=== PATIENT | female | born 1960 | race African-American/Black ===

== ENCOUNTER 2017-11-07 20:34 | Inpatient (IN) | payer BC ==
[~2017-11-07] VITALS: Ht 165.1 cm; Wt 97.2 kg
--- NOTE | ~2017-11-07 | 2DMMODE ---
[facility] [address] [place] [address] 2 D/M-MODE ECHOCARDIOGRAM Name: DEION BOO Room #: 215-P ADM IN .R.#: [id number] Admission: 11/07/17 Attend Phys: Rosy Condon Discharge: Date of : 60 Date of Service: 11/08/17 1332 Report #: [id number] THIS REPORT FOR: //name// APPROVED REPORT Study performed: 11/08/2017 10:07:03 EXAM: Comprehensive 2D, Doppler, and color-flow Echocardiogram Patient Location: In-Patient Room #: 215 Status: routine BSA: 1.92 HR: 62 bpm BP: 97/62 mmHg Other Information Study Quality: Good Risk Factors: Cardiac Risk Factors: SOB Indications Chest Pain 2D Dimensions LVEF(%): 66.60 (>50%) IVSd: 8.88 (7-11mm) LVOT Diam: 21.29 (18-24mm) LVDd: 46.04 mm PWd: 7.60 (7-11mm) Ascending Ao: 25.57 (22-36mm) LVDs: 29.13 (25-40mm) Left Atrium: 29.36 (27-40mm) Aortic Root: 29.04 mm Liriano's LVEF: 66.60 % Volumes Left Atrial Volume (Systole) Single Plane 4CH: 31.29 mL Single Plane 2CH: 38.50 mL Aortic Valve AoV Peak Mauricio.: 1.50 m/s AO Peak Gr.: 9.03 mmHg LVOT Max P.10 mmHg AO Mean Gr.: 5.17 mmHg LVOT Mean P.99 mmHg AO V2 Mean: 1.08 m/s LVOT Max V: 1.13 m/s AO V2 VTI: 32.42 cm LVOT Mean V: 0.82 m/s MARIO (VTI): 2.40 cm2 LVOT V1 VTI: 21.91 cm [facility] [place] [address] 2 D/M-MODE ECHOCARDIOGRAM Name: DEION BOO Room #: 215-P [facility] IN .R.#: [id number] Admission: 11/07/17 Attend Phys: Rosy Condon Discharge: Date of : 60 Date of Service: 11/08/17 1332 Report #: [id number] [id number] Vmax: 2.67 cm2 SV (LVOT): 77.93 mL Mitral Valve E/A Ratio: 1.8 MV Decel. Time: 226.98 ms MV E Max Mauricio.: 0.93 m/s MV A Mauricio.: 0.53 m/s MV PHT: 65.82 ms Pulmonary Valve PV Peak Mauricio.: 0.98 m/s PV Peak Gr.: 3.86 mmHg Pulmonary Vein P Vein S: 0.57 m/s P Vein A: 0.36 m/s P Vein D: 0.39 m/s P Vein A Dur.: 120.0 msec P Vein S/D Ratio: 1.46 Tricuspid Valve TR Peak Mauricio.: 2.51 m/s RAP Estimate: 5.00 mmHg TR Peak Gr.: 25.23 mmHg PA Pressure: 30.00 mmHg Left Ventricle The left ventricle is normal size. There is normal left ventricular wall thickness. The left ventricular systolic function is normal. The left ventricular ejection fraction is within the normal range. LVEF is 55-60%. The left ventricular diastolic function is normal. Right Ventricle The right ventricle is normal size. The right ventricular systolic function is normal. Atria The left atrium size is normal. The right atrium size is normal. Aortic Valve Aortic valve is mildly calcified. No aortic regurgitation is present. There is no aortic valvular stenosis. Mitral Valve Mild mitral regurgitation. No evidence of mitral valve stenosis. There is mild mitral valve prolapse. Tricuspid Valve [facility] [address] [place] [address] 2 D/M-MODE ECHOCARDIOGRAM Name: DEION BOO Room #: 215-P [facility] IN M.R.#: [id number] Admission: 11/07/17 Attend Phys: Rosy Condon Discharge: Date of : 60 Date of Service: 11/08/17 1332 Report #: [id number] The tricuspid valve is normal in structure. There is trace tricuspid regurgitation. The right atrial pressure is estimated at 30 mmHg. There is mild pulmonary hypertension. Pulmonic Valve The pulmonary valve is normal in structure. There is no pulmonic valvular regurgitation. Great Vessels The aortic root is normal in size. IVC is normal in size and collapses >50% with inspiration. Pericardium There is no pericardial effusion. <Conclusion> The left ventricle is normal size. There is normal left ventricular wall thickness. The left ventricular systolic function is normal. The right ventricle is normal size. The left atrium size is normal. Aortic valve is mildly calcified. There is no aortic valvular stenosis. There is mild mitral valve prolapse. Mild mitral regurgitation. <ELECTRONICALLY SIGNED> By: Chico Medina MD 11/08/171331 31 31 Chico Medina MD /INF
--- NOTE | ~2017-11-07 | HC ---
[facility] [place] [address] CONSULTATION Name: DEION BOO Room #: 215-P [facility] IN M.R.#: [id number] Admission: 11/07/17 Attend Phys: Rosy Barillas Discharge: 11/08/17 Date of : 60 Report #: [id number] THIS REPORT FOR: //name// CC: Arnie Fletchercusricardo Barillas DATE OF SERVICE: 11/08/2017 INDICATION: Chest pain. HISTORY OF PRESENT ILLNESS: This is a pleasant 57-year-old female presenting with chest discomfort. She describes 2 problems. The first is a mild chest discomfort in the substernal area, radiating to the back. It has been present for the past week or so. It seems to be exacerbated in certain positions, reproducible with palpation over the area. She denies any associated lightheadedness or diaphoresis. Occasionally, she has noted some shortness of air. The second problem is a discomfort that starts in the right neck and shoulder area, radiating down to her right fingers. This is most likely related to a neurologic problem. There is no history of fever, chills, nausea or diarrhea. PAST MEDICAL HISTORY: Positive for fibromyalgia and scleroderma. Denies any history of diabetes mellitus or hypertension. ALLERGIES: TETRACYCLINE. MEDICATIONS: Please see the MAR for full listing. SOCIAL HISTORY: Negative tobacco use. FAMILY HISTORY: Positive for premature coronary artery disease. REVIEW OF SYSTEMS: A full 10-point review of systems performed. Only the pertinent positives and negatives are described in the HPI. PHYSICAL EXAMINATION: VITAL SIGNS: Blood pressure is 120/70, heart rate is 80 beats per minute. GENERAL APPEARANCE: A well-developed, well-nourished female in no acute respiratory distress. HEAD AND EYES: Normocephalic. Sclerae are anicteric. ENT: Oral mucosa moist. NECK: Supple. LUNGS: Clear to auscultation. CARDIAC: Regular rate and rhythm, S1, S2 positive. ABDOMEN: Soft. [facility] [address] [place] [address] CONSULTATION Name: DEION BOO Room #: 215-[facility] IN M.R.#: [id number] Admission: 11/07/17 Attend Phys: Rosy Barillas Discharge: 11/08/17 Date of : 60 Report #: [id number] EXTREMITIES: No cyanosis, no edema. ECG reveals sinus rhythm, otherwise normal. LABORATORY VALUES: Troponin is negative x 3. ASSESSMENT AND PLAN: 1. Chest pain/atypical, it is reproducible with palpation over the area, more likely related to musculoskeletal etiology. Recommend aspirin and nonsteroidal anti-inflammatory drugs. 2. Neuropathy, she has a discomfort in the right shoulder area radiating to her right hand. 3. Dyspnea on exertion, will need an echocardiogram to assess the left ventricular systolic function. If the left ventricular function is normal and she remains clinically stable, consider discharge for an outpatient evaluation. She will ultimately need a stress test. 4. Sjogren syndrome, continue medications. <ELECTRONICALLY SIGNED> By: Chico Medina MD 11/09/17 0800 1110 1514 Chico Medina MD /nt
--- NOTE | ~2017-11-07 | EKG ---
[address] [address] ELECTROCARDIOGRAM REPORT Name: DEION BOO Room #: 215-P ADM IN M.R.#: [id number] Admission: 11/07/17 Attend Phys: Rosy Barillas Discharge: Date of : 60 Report #: [id number] THIS REPORT FOR: //name// [facility] ED Test Date: 2017-11-07 Test Time: 20:45:45 Pat Name: DEION BOO Department: Room: [facility] Gender: F [employer] Rout[employer]: [id number] : 1960 Requested By: Vincent Garcia Order Number: [id number] MD: Chico Medina Measurements Intervals [place] Rate: 78 P: 62 OH: 143 QRS: 34 QRSD: 78 T: 32 QT: 365 QTc: 416 Interpretive Statements Sinus rhythm No previous ECG available for comparison Electronically Signed On 11-08-2017 12:27:42 KILN FIRER by Chico Medina [email or web address] <ELECTRONICALLY SIGNED> By: Chico Medina MD 11/08/17 1227 2045 2045 Chico Medina MD /EPI
[2017-11-07 20:35] VITALS: BP 139/85
[2017-11-07 21:26] LABS: ANION GAP 11 mmol/L (7-16); BUN 17 mg/dL (7-18); CALCIUM 9.3 mg/dL (8.5-10.1); CHLORIDE 105 mmol/L (98-107); CO2 23 mmol/L (21-32); CREATININE 1.1 mg/dL (0.6-1.0); GLUCOSE 98 mg/dL (74-106); POTASSIUM 4.6 mmol/L (3.5-5.1); SODIUM 139 mmol/L (136-145)
[2017-11-07 21:34] LABS: HEMOGLOBIN 12.8 gm/dL (12.0-15.0); MCH 29.2 pg (26.0-34.0); MCHC 32.8 g/dL (28.0-37.0); MCV 88.9 fL (80.0-100.0); RBC 4.39 mil/uL (4.20-5.00); RDW 13.1 % (10.5-14.5); WBC 8.1 thou/uL (4.0-11.0)
[2017-11-07 21:35] LABS: TROPONIN-I < 0.04 ng/mL (<0.06)
[2017-11-07 21:43] LABS: MANUAL DIFF YES
[2017-11-07 22:33] LABS: ABSOLUTE NEUTROPHILS 4.8 thou/uL (1.4-8.2); ANISOCYTOSIS SLIGHT; ATYPICAL LYMPHS 2 %; LARGE PLATELETS OCCASIONAL; PLATELET COUNT 174 thou/uL (150-400); TOTAL CELL COUNT 100
[2017-11-07 23:56] VITALS: BP 124/82
[2017-11-08 00:09] VITALS: BP 124/73
[2017-11-08 00:39] VITALS: BP 127/78
[2017-11-08 03:25] VITALS: BP 104/58
[2017-11-08 07:59] VITALS: BP 97/62
[2017-11-08 11:07] VITALS: BP 114/75
[2017-11-08 15:45] VITALS: BP 114/75
== END 2017-11-08 17:17 | disposition home or self-care (01) | DRG 313 ==
LOC: ER 20:34 → EROBS 22:47 → 2N 11-08 00:10
PROVIDERS: Nurse Practitioner
DX: R07.89 Other chest pain (principal); M79.7 Fibromyalgia; M35.00 Sjogren syndrome, unspecified; G62.9 Polyneuropathy, unspecified; M32.9 Systemic lupus erythematosus, unspecified; Z90.49 Acquired absence of other specified parts of digestive tract; Z85.43 Personal history of malignant neoplasm of ovary; Z90.710 Acquired absence of both cervix and uterus; Z88.1 Allergy status to other antibiotic agents; Z82.49 Family history of ischemic heart disease and other diseases of the circulatory system; Z82.3 Family history of stroke